=== PATIENT | male | born 1940 | race Caucasian/White ===

== ENCOUNTER 2020-09-17 20:26 | Inpatient (IN) | payer MEDICARE, SELFPAY ==
--- NOTE | ~2020-09-17 | XR_ITS ---
XR chest 1V 09/18/2020 01:20 Indication: Preop Procedure: AP view of the chest Comparison: Comparison to multiple prior studies sequentially, with oldest reviewed study dated 11/12. Findings: Borderline heart size. Asymmetric left-sided airspace disease with left basilar atelectasis . No pleural effusion. Impression: 1: Asymmetric left-sided airspace disease, suspicious for pneumonia versus asymmetric edema. Reviewed, dictated and finalized at location A. Impression: 1: Asymmetric left-sided airspace disease, suspicious for pneumonia versus asym metric edema.
--- NOTE | ~2020-09-17 | XR_ITS ---
XR hip RT 2V w AP pelvis 09/18/2020 01:20 Indication: Right hip pain Procedure: 3 views right hip Comparison: No prior studies for comparison. Findings: There is a nondisplaced right femoral intertrochanteric fracture. Mild osteoarthritis of th e hips.. Pelvic rings are intact. There is moderate spondylosis lower lumbar spine. Impression: 1: Nondisplaced right femoral intertrochanteric fracture. Reviewed, dictated and finalized at location A. Impression: 1: Nondisplaced right femoral intertrochanteric fracture.
--- NOTE | ~2020-09-17 | XR_ITS ---
EXAMINATION: XR elbow RT 2V DATE: 09/18/2020 14:43 INDICATION: Right elbow injury. TECHNIQUE: 2 views of right elbow were obtained. COMPARISON: None. FINDINGS: Bone alignment is normal. No fracture. There is mild osteoarthritis of the elbow joint. The re is heterotopic ossification distal to medial humeral epicondyle. There is an enthesophyte at olecr anon with overlying soft tissue swelling. No elbow joint effusion. IMPRESSION: 1. No acute fracture. 2. Mild elbow joint osteoarthritis. Reviewed, dictated and finalized at location A.
--- NOTE | ~2020-09-17 | XR_ITS ---
XR surgery orthopedic 09/18/2020 11:12 Indication: Right hip fracture. Status post internal fixation. Procedure: 4 fluoroscopic views of the right hip. 56 seconds of fluoroscopy. Comparison: 09/18/2020 Findings: Status post internal fixation of right femoral intertrochanteric fracture with dynamic comp ression screw and intramedullary bruno. There is a single distal interlocking screw. Fracture fragments in anatomic alignment. Impression: 1: Status post recent intraoperative fixation of nondisplaced right femoral intertrochanteric fractur e with dynamic compression screw. Reviewed, dictated and finalized at location A. Impression: 1: Status post recent intraoperative fixation of nondisplaced right femoral int ertrochanteric fracture with dynamic compression screw.
[2020-09-17 20:27] VITALS: BP 147/90; PULSE 78; RESP 16; TEMP 36.6; O2SAT 99
--- NOTE | 2020-09-17 20:45 | PC.NURSE ---
xray states pt is unable to get xray due to pain in hip. they state pt will need to be in bed to do xray. notified.
[2020-09-17 23:21] VITALS: BP 154/96; PULSE 87; RESP 18; O2SAT 97
--- NOTE | 2020-09-17 23:31 | ECG_ITS ---
Measurements Intervals [place] Rate: 86 P: -82 NC: 161 QRS: -74 QRSD: 153 T: 22 QT: 402 QTc: 483 Interpretive Statements SINUS RHYTHM ATRIAL COUPLETS AND ATRIAL PREMATURE COMPLEXES RIGHT BUNDLE BRANCH BLOCK LEFT ANTERIOR FASCICULAR BLOCK ABNORMAL ECG Electronically Signed On 09-18-2020 6:57:33 CDT by Donato Gonzalez D.O.
[2020-09-17 23:43] LABS: Basophils Absolute Auto 0.1 K/mm3 (0.0-0.1); Basophils Percent Auto 0.4 % (0.2-1.2); Eosinophils Percent Auto 0.1 % (0-4.4); Hematocrit 45.4 % (42.0-52.0); Hemoglobin 14.8 g/dL (14.0-18.0); Immature Granulocyte Absolute 0.07 K/mm3 (0.00-0.031); Immature Granulocyte Percent A 0.5 % (0-0.5); Lymphocytes Absolute Auto 0.89 K/mm3 (0.9-3.2); Lymphocytes Percent Auto 6.6 % (18.3-44.2); Mean Corpuscular HGB Conc 32.6 g/dl (32-36); Mean Corpuscular Hemoglobin 30.6 pg (26-34); Mean Corpuscular Volume 93.8 fl (80-100); Mean Platelet Volume 10.2 fl (7.4-10.4); Monocytes Absolute Auto 0.9 K/mm3 (0.1-0.6); Monocytes Percent Auto 6.9 % (2.6-8.5); Neutrophils Absolute Auto 11.6 K/mm3 (1.3-6.7); Neutrophils Percent Auto 85.5 % (45.5-73.1); Platelet Count Result 196 k/mm3 (150-375); Red Blood Count 4.84 M/mm3 (4.6-6.20); Red Cell Distribution Width 13.3 % (11.5-14.5); White Blood Count 13.5 K/mm3 (4.5-10.0)
[2020-09-17] MEDS: MORPHINE SULFATE (*CRX) 4 MG/ML INJ 5 MG IV PUSH (23:56)
[2020-09-18] VITALS (17 sets, daily range): BP systolic 113–173; BP diastolic 65–93; PULSE 54–84; RESP 12–18; TEMP 35.7–37; O2SAT 95–99; BMI 29.2
[2020-09-18] LABS: Anion Gap 8 mmol/L (8-16); Blood Urea Nitrogen 24 mg/dL (9-20); Carbon Dioxide 24 mmol/L (22-30); Chloride 105 mmol/L (98-107); Estimated CRCL calculation 48 ml/min; Estimated Glomerular Filt Rate 53; Glucose 150 mg/dL (65-110); Potassium 3.9 mmol/L (3.4-5.0); Prothrombin Time 13.3 Seconds (11.1-14.7); Sodium 137 mmol/L (137-145)
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
--- NOTE | 2020-09-18 01:45 | ADMGEN ---
This patient, Maurice Natarajan, was admitted to Medical Room 257-01. Patient/family oriented to hospital policies and general routines including ID bracelet, bed and alarms, visiting hours, pain management, procedures, bathroom and other care routines, personal items, smoking policy, room service/diet, and visiting hours. Information on how to activate the Rapid Response Team has been discussed. Patient/Family are encouraged to report perceived risks to care and to ask questions if they do not understand what they are told or what they should do.
[2020-09-18] MEDS: LACTATED RINGERS 1,000 ML 125 ML IV CONT (02:15)
[2020-09-18] MEDS: MORPHINE SULFATE (*CRX) 4 MG/ML INJ 5 MG IV PUSH (02:21)
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
[2020-09-18 08:15] LABS: Hematocrit 40.4 % (42.0-52.0); Hemoglobin 13.7 g/dL (14.0-18.0); Mean Corpuscular HGB Conc 33.9 g/dl (32-36); Mean Corpuscular Hemoglobin 32.4 pg (26-34); Mean Corpuscular Volume 95.5 fl (80-100); Mean Platelet Volume 10.6 fl (7.4-10.4); Platelet Count Result 174 k/mm3 (150-375); Red Blood Count 4.23 M/mm3 (4.6-6.20); Red Cell Distribution Width 13.3 % (11.5-14.5); White Blood Count 10.2 K/mm3 (4.5-10.0)
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
--- NOTE | 2020-09-18 08:45 | WPDHPUPDATE1 ---
History and Physical Update Update Date/Time: 09/18/20 08:45 History and Physical has been reviewed, including an updated exam of the patient. There are NO changes in the patient's condition. Risks, benefits, and alternatives have been discussed and questions answered. Patient agrees to proceed with procedure.
--- NOTE | 2020-09-18 09:51 | WPDANESEPPF ---
Anes - Initial Pre Proc Eval Procedure: Operation Date: 09/18/20 09:30 Proposed Procedures p Intertrochanteric Nail(Right) - Donato Ambriz MD Date/Time: 09/18/20 09:51 Surgeon: Mayra Blue PA-C Pre Op Diagnosis: R Hip Fracture Patient Data Age: 80 Gender: M Height: 1.91 m Weight: 106 kg Last Vital Signs Temp 36.1 C L 09/18/20 05:23 Pulse 84 09/18/20 05:23 Resp 16 09/18/20 05:23 BP 173/90 H 09/18/20 05:23 Pulse Ox 98 09/18/20 05:23 Allergies Allergy/AdvReac Type Severity Reaction Status Date / Time No Known Allergies Allergy Verified 09/18/20 02:14 Home Medications Medication Instructions Recorded Confirmed Type aspirin 81 mg PO DAILY 09/18/20 09/18/20 History finasteride 5 mg PO DAILY 09/18/20 09/18/20 History tamsulosin 0.4 mg PO DAILY 09/18/20 09/18/20 History Laboratory Tests 09/17/20 09/17/20 09/17/20 23:34 23:34 23:34 WBC 13.5 K/mm3 H K/mm3 (4.5-10.0) RBC 4.84 M/mm3 M/mm3 (4.6-6.20) Hgb 14.8 g/dL g/dL (14.0-18.0) Hct 45.4 % % (42.0-52.0) MCV 93.8 fl fl (80-100) MCH 30.6 pg pg (26-34) MCHC 32.6 g/dl g/dl (32-36) RDW 13.3 % % (11.5-14.5) Plt Count 196 k/mm3 k/mm3 (150-375) MPV 10.2 fl fl (7.4-10.4) Immature Gran % (Auto) 0.5 % % (0-0.5) Neut % (Auto) 85.5 % H % (45.5-73.1) Lymph % (Auto) 6.6 % L % (18.3-44.2) [place] % (Auto) 6.9 % % (2.6-8.5) Eos % (Auto) 0.1 % % (0-4.4) Baso % (Auto) 0.4 % % (0.2-1.2) Lymph # (Auto) 0.89 K/mm3 L K/mm3 (0.9-3.2) [place] # (Auto) 0.9 K/mm3 H K/mm3 (0.1-0.6) Eos # (Auto) 0.0 K/mm3 K/mm3 (0-0.3) Baso # (Auto) 0.1 K/mm3 K/mm3 (0.0-0.1) Abs Immat Gran (auto) 0.07 K/mm3 H K/mm3 (0.00-0.031) Absolute Neuts (auto) 11.6 K/mm3 H K/mm3 (1.3-6.7) Absolute Nucleated RBC 0.0 K/mm3 K/mm3 (0.0-0.012) Nucleated RBC % 0.0 % % (0.0-0.2) PT 13.3 Seconds Seconds (11.1-14.7) INR 1.0 Sodium 137 mmol/L mmol/L (137-145) Potassium 3.9 mmol/L mmol/L (3.4-5.0) Chloride 105 mmol/L mmol/L (98-107) Carbon Dioxide 24 mmol/L mmol/L (22-30) Anion Gap 8 mmol/L mmol/L (8-16) BUN 24 mg/dL H mg/dL (9-20) Creatinine 1.30 mg/dL mg/dL (0.7-1.3) Estim Creat Clear Calc 48 ml/min ml/min Estimated GFR 53 L (59 - ) Glucose 150 mg/dL H mg/dL (65-110) Calcium 9.0 mg/dL mg/dL (8.4-10.2) 09/18/20 07:46 WBC 10.2 K/mm3 H K/mm3 (4.5-10.0) RBC 4.23 M/mm3 L M/mm3 (4.6-6.20) Hgb 13.7 g/dL L g/dL (14.0-18.0) Hct 40.4 % L % (42.0-52.0) MCV 95.5 fl fl (80-100) MCH 32.4 pg D pg (26-34) MCHC 33.9 g/dl g/dl (32-36) RDW 13.3 % % (11.5-14.5) Plt Count 174 k/mm3 k/mm3 (150-375) MPV 10.6 fl H fl (7.4-10.4) Immature Gran % (Auto) Neut % (Auto) Lymph % (Auto) [place] % (Auto) Eos % (Auto) Baso % (Auto) Lymph # (Auto) [place] # (Auto) Eos # (Auto) Baso # (Auto) Abs Immat Gran (auto) Absolute Neuts (auto) Absolute Nucleated RBC Nucleated RBC % PT INR Sodium Potassium Chloride Carbon Dioxide Anion Gap BUN Creatinine Estim Creat Clear Calc Estimated GFR Glucose Calcium Patient hx anesthesia problems: none Family hx anesthesia problems: none [facility] Past Medical History Medical History (Updated 09/18/20 @ 09:54 by Yvon Westbrook, DO) Atrial ectopy BPH (benign prostatic hyperplasia) Intertrochanteric fracture of right hip Right bundle branch block Family History Family History (Reviewed 09/18/20 @ 08:42 by Donato Negron
[2020-09-18] MEDS: BUPIVACAINE HCL 0.5% PF 30 ML VIAL INFILTRATE (11:05)
--- NOTE | 2020-09-18 11:26 | W.PM.PROC2 ---
Procedure Note - Detailed Date of Procedure 09/18/20 Pre-op Diagnosis Right intertrochanteric hip fracture Post-op Diagnosis same Procedure Performed ORIF right IT hip fracture with trochanteric nail device Surgeon Donato Ambriz MD [employer] Anesthesia general Indications see H&P Description of Procedure The patient was identified and proper site identified, then was taken to the operating room and after general anesthetic induction and intubation was transferred to the [place] table positioning supine taking care to properly pad position the torso and extremities. A provisional reduction was able to be obtained with fluoroscopic assistance. The right hip and thigh was then prepped and draped in the usual sterile fashion. A short incision was made proximal to the tip of the greater trochanter. Subcutaneous tissue was sharply dissected down to the gluteus fascia which was incised over the tip of the greater trochanter. An awl was used to create a starting hole through which a guide bruno was inserted into the femoral canal verifying its position fluoroscopically. The one-step Reamer was used to prepare the entry point for the bruno. A 125 degree, 13 mm short nail was then inserted to the appropriate level using the targeting device. Through a 2nd more distal incision under fluoroscopic visualization a 100 mm lag screw was inserted over a guidewire into the femoral neck and head securing it with the set screw. Through a 3rd more distal incision, using the targeting device, a distal interlocking screw was placed. The overall construct was assessed fluoroscopically on the AP and lateral views, and was noted to be satisfactory. The targeting device was removed. The wounds were irrigated with sterile antibiotic solution. The fascia was reapproximated with 0 Vicryl as was the deeper layers of the subcu. Skin edges were reapproximated with three 0 Monocryl and kayli. Sterile dressing was applied. The procedure was well tolerated. There were no known intraoperative complications. Perioperative antibiotics were administered. Estimated Blood Loss 30 Urine Output 200 Drains No Packing No Pathology none sent Complications No immediate complications Condition stable Disposition PACU
[2020-09-18] MEDS: LACTATED RINGERS 1,000 ML 30 ML IV CONT (11:30)
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
[2020-09-18] MEDS: KCL 20 MEQ/D5/0.45% SOD CHL 1,000 ML 80 ML IV CONT (14:39)
[2020-09-18] MEDS: HYDROcodone/acetaminophen (*CRX) 5-325 MG TABLET 1 TAB PO ×2 (16:07→20:06)
[2020-09-18] MEDS: DOCUSATE SODIUM 100 MG CAPSULE PO (16:18)
[2020-09-18] MEDS: ceFAZolin 2 GM/D5W 50 ML 2 GM/50 ML BAG IVPB (17:58)
[2020-09-18] MEDS: FAMOTIDINE 20 MG TABLET PO (20:06)
[2020-09-19] VITALS (7 sets, daily range): BP systolic 110–137; BP diastolic 63–84; PULSE 68–82; RESP 16–18; TEMP 36.6–37.4; O2SAT 93–97
[2020-09-19] MEDS: ceFAZolin 2 GM/D5W 50 ML 2 GM/50 ML BAG IVPB ×2 (01:38→09:29)
[2020-09-19] MEDS: HYDROcodone/acetaminophen (*CRX) 5-325 MG TABLET 1 TAB PO ×3 (01:43→08:30)
[2020-09-19 06:00] LABS: Basophils Percent Auto 0.2 % (0.2-1.2); Eosinophils Absolute Auto 0.1 K/mm3 (0-0.3); Eosinophils Percent Auto 1.4 % (0-4.4); Hematocrit 38.9 % (42.0-52.0); Hemoglobin 12.4 g/dL (14.0-18.0); Immature Granulocyte Absolute 0.06 K/mm3 (0.00-0.031); Immature Granulocyte Percent A 0.7 % (0-0.5); Lymphocytes Absolute Auto 1.21 K/mm3 (0.9-3.2); Mean Corpuscular HGB Conc 31.9 g/dl (32-36); Mean Corpuscular Hemoglobin 30.8 pg (26-34); Mean Corpuscular Volume 96.8 fl (80-100); Mean Platelet Volume 10.4 fl (7.4-10.4); Monocytes Absolute Auto 0.8 K/mm3 (0.1-0.6); Monocytes Percent Auto 9.4 % (2.6-8.5); Neutrophils Absolute Auto 6.4 K/mm3 (1.3-6.7); Neutrophils Percent Auto 74.3 % (45.5-73.1); Platelet Count Result 150 k/mm3 (150-375); Red Blood Count 4.02 M/mm3 (4.6-6.20); Red Cell Distribution Width 13.5 % (11.5-14.5); White Blood Count 8.7 K/mm3 (4.5-10.0)
[2020-09-19 06:14] LABS: Anion Gap 6 mmol/L (8-16); Blood Urea Nitrogen 17 mg/dL (9-20); Calcium 8.2 mg/dL (8.4-10.2); Carbon Dioxide 24 mmol/L (22-30); Chloride 104 mmol/L (98-107); Estimated CRCL calculation 68 ml/min; Estimated Glomerular Filt Rate > 60; Glucose 114 mg/dL (65-110); Potassium 4.2 mmol/L (3.4-5.0); Sodium 134 mmol/L (137-145)
[2020-09-19 07:25] LABS: Vitamin D 25 Hydroxy 35.8 ng/mL
[2020-09-19] MEDS: TAMSULOSIN HCL 0.4 MG CAPSULE PO (08:35)
[2020-09-19] MEDS: FAMOTIDINE 20 MG TABLET PO ×2 (08:35→20:28)
[2020-09-19] MEDS: DOCUSATE SODIUM 100 MG CAPSULE PO ×2 (08:35→16:47)
[2020-09-19] MEDS: FINASTERIDE 5 MG TABLET PO (08:35)
[2020-09-19] MEDS: ENOXAPARIN 40 MG/0.4 ML SYRINGE SUB-Q (08:35)
[2020-09-19] MEDS: polyethylene glycoL 3350 17 GM POWD.PACK PO (08:35)
--- NOTE | 2020-09-19 10:48 | PM.PNORT ---
Progress Note: A&P Assessment and Plan (1) Intertrochanteric fracture of right hip: Qualifiers: Encounter type: initial encounter Fracture type: closed Fracture alignment: displaced Qualified Code(s): S72.141A - Displaced intertrochanteric fracture of right femur, initial encounter for closed fracture Code(s): S72.141A - Displaced intertrochanteric fracture of right femur, initial encounter for closed fracture Status: Acute Assessment and Plan: 80-year-old male postop day one ORIF right IT hip fracture. Surgery discussed with the patient and his in detail today. Understands protected weight-bearing status for the next two months minimum period may benefit from SNF depending on how therapy goes. Following. Subjective Subjective Date/Time Seen: 09/19/20 10:48 Post Op day: 1 Principal diagnosis: Status post ORIF right IT hip fracture Interval history: 80-year-old male postop day one right IT hip fracture. No complaints. Having less discomfort in the right hip and thigh. Exam Const: General: cooperative, comfortable and no acute distress Nutritional Appearance: well nourished Extrem: Other: Right hip wound is dry. Minimal swelling right thigh. No bruising. Neurovascular status right lower extremity intact. Calves negative. Objective Data Vital Signs Vital Signs: Vital Signs - 24 hr 09/18/20 11:30 09/18/20 11:45 09/18/20 12:00 Temperature 97.4 F L Pulse Rate 80 81 70 Respiratory Rate 13 14 13 Blood Pressure 113/69 149/79 H 158/83 H Pulse Oximetry 98 99 98 09/18/20 12:15 09/18/20 12:30 09/18/20 12:37 Temperature Pulse Rate 65 63 60 Respiratory Rate 13 12 13 Blood Pressure 152/88 H 143/82 H 145/88 H Pulse Oximetry 98 95 95 09/18/20 13:00 09/18/20 13:15 09/18/20 13:45 Temperature 97.4 F L 96.3 F L 97.3 F L Pulse Rate 57 L 55 L 54 L Respiratory Rate 16 16 16 Blood Pressure 149/75 H 154/80 H 138/78 Pulse Oximetry 98 98 99 09/18/20 14:45 09/18/20 20:00 09/18/20 21:29 Temperature 97.3 F L Pulse Rate 57 L 67 65 Respiratory Rate 16 16 Blood Pressure 141/82 H Pulse Oximetry 99 97 96 09/18/20 22:24 09/19/20 02:00 09/19/20 06:05 Temperature 98.6 F 97.9 F 98.0 F Pulse Rate 67 70 68 Respiratory Rate 16 16 16 Blood Pressure 138/65 118/65 124/68 Pulse Oximetry 97 94 93 Intake/Output Intake/Output: Intake & Output 09/16/20 09/17/20 09/18/20 09/19/20 23:59 23:59 23:59 23:59 Intake Total 670 / 670 250 / 250 Output Total 1150 / 1150 650 / 650 Balance -480 / -480 -400 / -400 Meds/Results Medications: Active Medications Generic Name Dose Route Start Last Admin Trade Name Freq PRN Reason Stop Dose Admin Acetaminophen 650 mg 09/18/20 12:39 Acetaminophen 325 Mg Tablet PO Q6H PRN Mild Pain (1-3) or Fever Hydrocodone Bitart/Acetaminophen 1 tab 09/18/20 12:39 09/19/20 08:30 Hydrocodone/Acetaminophen (*Crx) 5-325 Mg Tablet PO 1 tab Q3H PRN Administration Pain Rated 4-6 Hydrocodone Bitart/Acetaminophen 2 tab 09/18/20 12:39 Hydrocodone/Acetaminophen (*Crx) 5-325 Mg Tablet PO Q6H PRN Pain Rated 7-10 Docusate Sodium 100 mg 09/18/20 17:00 09/19/20 08:35 Docusate Sodium 100 Mg Capsule PO 100 mg BID SOHAN Administration Enoxaparin Sodium 40 mg 09/19/20 09:00 09/19/20 08:35 Enoxaparin 40 Mg/0.4 Ml Syringe SUB-Q 40 mg DAILY SOHAN Administration Famotidine 20 mg 09/18/20 21:00 09/19/20 08:35 Famotidine 20 Mg Tablet PO 20 mg Q12HR SOHAN Administration Finasteride 5 mg 09/19/20 09:00 09/19/20 08:35 Finasteride 5 Mg Tablet PO 5 mg DAILY SOHAN Administration Hydroxyzine Pamoate 50 mg 09/18/20 12:39 Hydroxyzine Pamoate 25 Mg Capsule PO Q4H PRN Itching Magnesium Hydroxide 30 ml 09/18/20 12:39 Magnesium Hydroxide Susp 30 Ml Udc PO BID PRN Constipation Naloxone HCl 0.1 mg 09/18/20 12:39 Naloxone Hcl 0.4 Mg/Ml Vial IV PUSH
[2020-09-19] MEDS: HYDROcodone/acetaminophen (*CRX) 5-325 MG TABLET 2 TAB PO (13:51)
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
[2020-09-20] MEDS: HYDROcodone/acetaminophen (*CRX) 5-325 MG TABLET 1 TAB PO ×2 (01:04→13:53)
[2020-09-20 05:29] VITALS: BP 134/67; PULSE 77; RESP 16; TEMP 37; O2SAT 97
[2020-09-20 05:38] LABS: Hematocrit 38.2 % (42.0-52.0); Hemoglobin 12.2 g/dL (14.0-18.0); Mean Corpuscular HGB Conc 31.9 g/dl (32-36); Mean Corpuscular Hemoglobin 30.6 pg (26-34); Mean Corpuscular Volume 95.7 fl (80-100); Mean Platelet Volume 10.4 fl (7.4-10.4); Platelet Count Result 141 k/mm3 (150-375); Red Blood Count 3.99 M/mm3 (4.6-6.20); Red Cell Distribution Width 13.2 % (11.5-14.5); White Blood Count 8.3 K/mm3 (4.5-10.0)
[2020-09-20 05:50] LABS: Anion Gap 6 mmol/L (8-16); Blood Urea Nitrogen 16 mg/dL (9-20); Calcium 8.2 mg/dL (8.4-10.2); Carbon Dioxide 24 mmol/L (22-30); Chloride 102 mmol/L (98-107); Estimated CRCL calculation 68 ml/min; Estimated Glomerular Filt Rate > 60; Glucose 110 mg/dL (65-110); Potassium 4.3 mmol/L (3.4-5.0); Sodium 132 mmol/L (137-145)
--- NOTE | 2020-09-20 07:31 | PM.PNORT ---
Progress Note: A&P Assessment and Plan (1) Intertrochanteric fracture of right hip: Qualifiers: Encounter type: initial encounter Fracture type: closed Fracture alignment: displaced Qualified Code(s): S72.141A - Displaced intertrochanteric fracture of right femur, initial encounter for closed fracture Code(s): S72.141A - Displaced intertrochanteric fracture of right femur, initial encounter for closed fracture Status: Acute Assessment and Plan: 80-year-old male postop day two ORIF right IT hip fracture. Doing well. Likely discharge to rehab today. [place] will need to be removed in two weeks. Follow up with me in eight weeks. No change in activity level from my standpoint between now and his follow-up with me. On discharge can be switched to enteric-coated aspirin for DVT prophylaxis. Subjective Subjective Date/Time Seen: 09/20/20 07:31 Post Op day: 2 Principal diagnosis: status post ORIF right IT hip fracture Interval history: 80-year-old male postop day two right IT hip fracture. No complaints. Exam Const: General: cooperative, comfortable and no acute distress Nutritional Appearance: well nourished Extrem: Other: Right hip wounds dry. Minimal swelling right thigh. Neurovascular status grossly intact right lower extremity. Calves negative. Objective Data Vital Signs Vital Signs: Vital Signs - 24 hr 09/19/20 10:35 09/19/20 14:45 09/19/20 18:50 Temperature 99.3 F 98.6 F 99.3 F Pulse Rate 74 82 82 Respiratory Rate 16 16 16 Blood Pressure 110/63 122/65 131/78 Pulse Oximetry 95 95 96 09/19/20 20:00 09/19/20 20:40 09/20/20 05:29 Temperature 98.6 F 98.6 F Pulse Rate 82 81 77 Respiratory Rate 16 18 16 Blood Pressure 137/84 134/67 Pulse Oximetry 96 97 97 Intake/Output Intake/Output: Intake & Output 09/17/20 09/18/20 09/19/20 09/20/20 23:59 23:59 23:59 23:59 Intake Total 670 / 670 2019 Output Total 1150 / 1150 1700 / 1700 Balance -480 / -480 320 / 320 Meds/Results Medications: Active Medications Generic Name Dose Route Start Last Admin Trade Name Freq PRN Reason Stop Dose Admin Acetaminophen 650 mg 09/18/20 12:39 Acetaminophen 325 Mg Tablet PO Q6H PRN Mild Pain (1-3) or Fever Hydrocodone Bitart/Acetaminophen 1 tab 09/18/20 12:39 09/20/20 01:04 Hydrocodone/Acetaminophen (*Crx) 5-325 Mg Tablet PO 1 tab Q3H PRN Administration Pain Rated 4-6 Hydrocodone Bitart/Acetaminophen 2 tab 09/18/20 12:39 09/19/20 13:51 Hydrocodone/Acetaminophen (*Crx) 5-325 Mg Tablet PO 2 tab Q6H PRN Administration Pain Rated 7-10 Docusate Sodium 100 mg 09/18/20 17:00 09/19/20 16:47 Docusate Sodium 100 Mg Capsule PO 100 mg BID SOHAN Administration Enoxaparin Sodium 40 mg 09/19/20 09:00 09/19/20 08:35 Enoxaparin 40 Mg/0.4 Ml Syringe SUB-Q 40 mg DAILY SOHAN Administration Famotidine 20 mg 09/18/20 21:00 09/19/20 20:28 Famotidine 20 Mg Tablet PO 20 mg Q12HR SOHAN Administration Finasteride 5 mg 09/19/20 09:00 09/19/20 08:35 Finasteride 5 Mg Tablet PO 5 mg DAILY SOHAN Administration Hydroxyzine Pamoate 50 mg 09/18/20 12:39 Hydroxyzine Pamoate 25 Mg Capsule PO Q4H PRN Itching Magnesium Hydroxide 30 ml 09/18/20 12:39 Magnesium Hydroxide Susp 30 Ml Udc PO BID PRN Constipation Naloxone HCl 0.1 mg 09/18/20 12:39 Naloxone Hcl 0.4 Mg/Ml Vial IV PUSH Q2M PRN Opiate Reversal Ondansetron HCl 4 mg 09/18/20 12:39 Ondansetron Inj 4 Mg/2 Ml Vial IV PUSH 09/20/20 12:40 Q4H PRN Nausea And Vomiting Polyethylene Glycol 17 gm 09/19/20 09:00 09/19/20 08:35 Polyethylene Glycol 3350 17 Gm Powd.Pack PO 17 gm QAM SOHAN Administration Tamsulosin HCl 0.4 mg 09/19/20 09:00 09/19/20 08:35 Tamsulosin Hcl 0.4 Mg Capsule PO 0.4 mg DAILY SOHAN Administration Radiology Results: ITS Impressions Chest X-Ray 09/18/20 07:4
[2020-09-20] MEDS: FAMOTIDINE 20 MG TABLET PO (08:25)
[2020-09-20] MEDS: ENOXAPARIN 40 MG/0.4 ML SYRINGE SUB-Q (08:25)
[2020-09-20] MEDS: polyethylene glycoL 3350 17 GM POWD.PACK PO (08:25)
[2020-09-20] MEDS: DOCUSATE SODIUM 100 MG CAPSULE PO (08:25)
[2020-09-20] MEDS: FINASTERIDE 5 MG TABLET PO (08:25)
[2020-09-20] MEDS: TAMSULOSIN HCL 0.4 MG CAPSULE PO (08:25)
[2020-09-20] MEDS: HYDROcodone/acetaminophen (*CRX) 5-325 MG TABLET 2 TAB PO (08:26)
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
[2020-09-20] MEDS: BISACODYL 10 MG SUPPOSITORY RECTAL (13:01)
== END 2020-09-20 14:13 | DRG 482 ==
LOC: ANHED 09-18 00:44 → ANH2MED 09-18 05:14
PROVIDERS: Orthopaedic Surgery; Admitting Provider Internal Medicine; Emergency Provider Emergency Medicine; PCP Family Medicine; Visit Provider Physician Assistant
PROC: 0QS634Z Reposition Right Upper Femur with Internal Fixation Device, Percutaneous Approach (ICD-10-PCS; CPT 27245; principal; 2020-09-18 09:30)
DX: S72.141A Displaced intertrochanteric fracture of right femur, initial encounter for closed fracture (principal); W18.39XA Other fall on same level, initial encounter; I49.1 Atrial premature depolarization; I45.10 Unspecified right bundle-branch block; I44.60 Unspecified fascicular block; N40.0 Benign prostatic hyperplasia without lower urinary tract symptoms; Z79.82 Long term (current) use of aspirin; Z79.899 Other long term (current) drug therapy
CPT/HCPCS: 36415; 71045; 73070; 73502; 80048; 82306; 85025; 85027; 85610; 93005; 96374; 97110; 97116; 97161; 97165; 97530; 97535; 99285; A9270; C1713; J0131; J0690; J1650; J2270; J2405; J2704; J3480; J7120

== ENCOUNTER 2020-10-05 13:23 | Outpatient (CLI) | payer MEDICARE, SELFPAY ==
--- NOTE | ~2020-10-05 | US_ITS ---
EXAMINATION: US venous doppler LE RT DATE: 10/05/2020 14:14 INDICATION: Right lower limb swelling post hip surgery TECHNIQUE: Grayscale ultrasound images without and with compression and Doppler ultrasound images of the right lower extremity veins were obtained. COMPARISON: None. FINDINGS: The visualized portions of right common femoral vein, profunda (deep) femoral vein, femoral vein, pop liteal vein, peroneal trunk, posterior tibial veins, peroneal veins, gastrocnemius vein and greater s aphenous vein outflow are patent. Mild subcutaneous edema at the right calf. IMPRESSION: 1. No deep venous thrombosis in the right lower limb. Reviewed, dictated and finalized at location B.
== END 2020-10-05 13:24 | disposition home or self-care (01) ==
PROVIDERS: PCP Family Medicine; Visit Provider Physician Assistant Medical
DX: M79.89 Other specified soft tissue disorders (principal)
CPT/HCPCS: 93971

== ENCOUNTER → 2021-11-24 12:24 | Outpatient (CLI) | payer MEDICARE, SELFPAY ==
--- NOTE | ~2021-11-24 | XR_ITS ---
EXAMINATION: XR shoulder LT min 2V INDICATION: Left shoulder pain TECHNIQUE: Four views of the left shoulder are submitted. COMPARISON: None FINDINGS: Normal alignment. No fracture. There is moderate osteoarthritis of the glenohumeral joint a nd mild osteoarthritis of the acromioclavicular joint. Soft tissues are unremarkable. IMPRESSION: 1. Osteoarthritis without acute osseous abnormality. Reviewed, dictated and finalized at location F.
--- NOTE | ~2021-11-24 | XR_ITS ---
EXAMINATION: XR lumbar spine min 4V DATE: 11/24/2021 13:16 INDICATION: Low back pain TECHNIQUE: Anteroposterior, lateral, and bilateral oblique views of the lumbar spine, and cone-down l ateral view of the lumbosacral junction were obtained. COMPARISON: None. FINDINGS: There is no fracture. The vertebral body heights are maintained. There is severe loss of in tervertebral disc space height at all levels of the lumbar spine. There are 5 mm of retrolisthesis of L3 on L4. There is advanced facet joint osteoarthritis of the lower lumbar spine. The bowel gas kofi eitan is normal. Phleboliths are noted in the pelvis. IMPRESSION: 1. Severe lumbar spondylosis without acute osseous abnormality. Reviewed, dictated and finalized at location F.
--- NOTE | ~2021-11-24 | XR_ITS ---
EXAMINATION: XR shoulder RT min 2V INDICATION: Right shoulder pain TECHNIQUE: Four views of the right shoulder are submitted. COMPARISON: None FINDINGS: Normal alignment. No fracture. There is moderate osteoarthritis of the acromioclavicular an d glenohumeral joints. Soft tissues are unremarkable. IMPRESSION: 1. Moderate osteoarthritis without acute findings. Reviewed, dictated and finalized at location F.
--- NOTE | ~2021-11-24 | XR_ITS ---
EXAMINATION: XR hip BI 2V w AP pelvis DATE: 11/24/2021 13:16 INDICATION: Bilateral hip pain TECHNIQUE: AP view the pelvis and three views of each hip were obtained. COMPARISON: 05/23/2021 FINDINGS: There is antegrade intramedullary bruno and interlocking intratrochanteric screw fixation of the right femur. Calcified callus at the fracture site has increased. Bone alignment is normal. There is moderate osteoarthritis of the hips. There is severe lower lumbar spondylosis. No acute fracture is identified. Calcified atherosclerosis is noted. There are phleboliths of the pelvis. IMPRESSION: 1. 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 Reviewed, dictated and finalized at location F.
== END ==
PROVIDERS: PCP Physician Assistant; Visit Provider Physician Assistant
DX: M16.0 Bilateral primary osteoarthritis of hip (principal); M19.012 Primary osteoarthritis, left shoulder; M19.011 Primary osteoarthritis, right shoulder; M47.816 Spondylosis without myelopathy or radiculopathy, lumbar region
CPT/HCPCS: 72110; 73030; 73521

== ENCOUNTER 2022-09-05 10:26 | Outpatient (CLI) | payer MEDICARE, SELFPAY ==
[2022-09-05 18:55] LABS: Basophils Percent Auto 0.6 % (0.2-1.2); Eosinophils Absolute Auto 0.1 K/mm3 (0-0.3); Eosinophils Percent Auto 2.1 % (0-4.4); Hematocrit 47.2 % (42.0-52.0); Hemoglobin 16.2 g/dL (14.0-18.0); Immature Granulocyte Absolute 0.01 K/mm3 (0.00-0.031); Immature Granulocyte Percent A 0.2 % (0-0.5); Immature Platelet Fraction Pct 5.5 % (0.9-11.2); Lymphocytes Absolute Auto 1.41 K/mm3 (0.9-3.2); Lymphocytes Percent Auto 21.5 % (18.3-44.2); Mean Corpuscular HGB Conc 34.3 g/dl (32-36); Mean Corpuscular Hemoglobin 33.8 pg (26-34); Mean Corpuscular Volume 98.5 fl (80-100); Mean Platelet Volume 10.7 fl (7.4-10.4); Monocytes Absolute Auto 0.6 K/mm3 (0.1-0.6); Neutrophils Absolute Auto 4.4 K/mm3 (1.3-6.7); Neutrophils Percent Auto 66.6 % (45.5-73.1); Platelet Count Result 189 k/mm3 (150-375); Red Blood Count 4.79 M/mm3 (4.6-6.20); Red Cell Distribution Width 14.1 % (11.5-14.5); White Blood Count 6.6 K/mm3 (4.5-10.0)
[2022-09-05 19:10] LABS: Anion Gap 8 mmol/L (8-16); Blood Urea Nitrogen 19 mg/dL (9-20); Carbon Dioxide 28 mmol/L (22-30); Chloride 104 mmol/L (98-107); Cholesterol 199 mg/dL (0-200); Estimated Glomerular Filt Rate > 60; Glucose 140 mg/dL (65-110); HDL Direct 36 mg/dL; Potassium 4.6 mmol/L (3.4-5.0); Sodium 140 mmol/L (137-145); Triglycerides 115 mg/dL (<150)
[2022-09-05 19:22] LABS: LDL Cholesterol Direct 124 mg/dL
== END 2022-09-05 10:27 | disposition home or self-care (01) ==
LOC: ANHGOSHLAB 10:27
PROVIDERS: PCP Family Medicine; Visit Provider Nurse Practitioner Family
DX: N40.0 Benign prostatic hyperplasia without lower urinary tract symptoms (principal); I45.10 Unspecified right bundle-branch block; I52 Other heart disorders in diseases classified elsewhere
CPT/HCPCS: 36415; 80048; 80061; 85025; 85055

== ENCOUNTER 2023-12-18 08:34 | Outpatient (CLI) | payer MEDICARE, SELFPAY ==
[2023-12-18 20:48] LABS: Alanine Aminotransferase 18 U/L (6-50); Albumin Level 3.9 g/dL (3.5-5.1); Alkaline Phosphatase 108 U/L (38-126); Anion Gap 6 mmol/L (4-12); Aspartate Amino Transferase 22 U/L (17-59); Bilirubin,Total 1.2 mg/dL (0.2-1.3); Blood Urea Nitrogen 20 mg/dL (9-20); Calcium 8.7 mg/dL (8.4-10.2); Carbon Dioxide 28 mmol/L (22-30); Chloride 106 mmol/L (98-107); Cholesterol 176 mg/dL (0-200); Estimated Glomerular Filt Rate > 60; Glucose 131 mg/dL (65-110); HDL Direct 38 mg/dL; Potassium 4.5 mmol/L (3.4-5.0); Sodium 140 mmol/L (137-145); Triglycerides 91 mg/dL (<150)
[2023-12-18 21:01] LABS: LDL Cholesterol Direct 112 mg/dL
== END 2023-12-18 08:35 | disposition home or self-care (01) ==
PROVIDERS: PCP Family Medicine; Visit Provider Nurse Practitioner Family
DX: E78.5 Hyperlipidemia, unspecified (principal); N40.0 Benign prostatic hyperplasia without lower urinary tract symptoms; I45.10 Unspecified right bundle-branch block; R53.83 Other fatigue
CPT/HCPCS: 36415; 80053; 80061; 84443

== ENCOUNTER 2024-03-19 14:03 | Outpatient (CLI) | payer MEDICARE, SELFPAY ==
[2024-03-19 21:04] LABS: Prostate Specific Antigen 1.2 ng/mL (< OR = 4.0)
[2024-03-19 22:05] LABS: Hemoglobin A1C 5.8 % (<5.7)
[2024-03-19 23:57] LABS: Free T4 Free Thyroxine Reflex 0.88 ng/dL (0.78-2.19)
[2024-03-20 01:21] LABS: Total Triiodothyronine (T3) 1.28 NG/ML (0.97-1.69)
== END 2024-03-19 14:04 | disposition home or self-care (01) ==
LOC: ANHGOSHLAB 14:04
PROVIDERS: PCP Family Medicine; Visit Provider Family Medicine
DX: R06.02 Shortness of breath (principal); N40.0 Benign prostatic hyperplasia without lower urinary tract symptoms; E03.9 Hypothyroidism, unspecified; I49.1 Atrial premature depolarization; R73.9 Hyperglycemia, unspecified; Z12.5 Encounter for screening for malignant neoplasm of prostate
CPT/HCPCS: 36415; 83036; 84153; 84439; 84443; 84480; G0103